=== PATIENT | male | born 1925 | race Caucasian/White ===

== ENCOUNTER 2016-09-19 12:07 | Outpatient (CLI) | payer MEDICARE ==
--- NOTE | 2016-09-19 22:21 | RAD ---
LUMBAR SPINE THREE VIEWS 09/19/16 Slight scoliosis convexed right is present but might even be positional. The SI joints are symmetric al. The lateral view shows a mild anterior compression of T12 and to a lesser extent L1. A degenerat ed disc is seen at L2-L3. Osteophytes are seen elsewhere in the lumbar spine. 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 Ar terial calcifications are present in the aorta. IMPRESSION: 1. Degenerative disc disease at L2-L3. 2. Mild anterior compressions of T12 and to a lesser extent L1. 3. Grade I spondylolisthesis of L5 on S1, probably due to intense facet arthritis at this level . POS: HOME
== END 2016-09-19 12:08 | disposition home or self-care (01) ==
LOC: BURRAD 12:07
PROVIDERS: ATTEND Family Medicine
DX: M54.5 Low back pain (principal); M51.36 Other intervertebral disc degeneration, lumbar region; M43.17 Spondylolisthesis, lumbosacral region
CPT/HCPCS: 72100

== ENCOUNTER 2017-01-10 09:33 | Outpatient (CLI) | payer MEDICARE ==
[2017-01-10 16:10] LABS: ALT (SGPT) 10 U/L (8-55); AST (SGOT) 11 U/L (5-34); Alkaline Phosphatase 75 U/L (40-150); Anion Gap 13 mmol/L (10-20); BUN (Urea Nitrogen) 26 mg/dL (8.4-25.7); Bilirubin, Total 0.6 mg/dL (0.2-1.2); Calc. Creatinine Clearance 0 mL/min (70-130); Carbon Dioxide 32 mmol/L (23-31); Cardiac Risk 2.3 (Less than 4.5); Chloride 106 mmol/L (98-107); Cholesterol 184 mg/dl (< 200 Desired); Estimated GFR-MDRD 54; Globulin 2.9 g/dL (2.4-3.5); Glucose 99 mg/dL (83-110); HDL Cholesterol 80 mg/dL (>60 Neg Risk); LDL Cholesterol, Calculated 92 mg/dL; Potassium 4.2 mmol/L (3.5-5.1); Protein, Total 6.9 g/dL (5.8-8.1); Sodium 147 mmol/L (136-145); Triglycerides 61 mg/dL (Less than 150)
[2017-01-10 16:19] LABS: #Basophils 0.1 thou/uL (0.0-0.2); #Lymphocytes 1.5 thou/uL (1.20-3.40); #Monocytes 0.3 thou/uL (0.11-0.59); #Neutrophils 10.5 thou/uL (1.40-6.50); %Basophils 0.5 % (0.0-1.0); %Eosinophils 0.2 % (0.0-10.0); %Lymphocytes 11.8 % (21.0-51.0); %Monocytes 2.6 % (0.0-10.0); Hemoglobin 11.6 g/dL (14.0-18.0); Mean Corpuscular Hemoglobin 26.2 pg (27.0-31.0); Mean Corpuscular Volume 87.3 fl (80.0-94.0); Mean Platelet Volume 6.3 fL (7.4-10.4); Platelet Count 251 thou/uL (130-400); RBC Distribution Width 22.1 % (11.5-14.5); Red Blood Cell (RBC) Count 4.42 mill/uL (4.70-6.10); White Blood Cell (WBC) Count 12.4 thou/uL (4.8-10.8)
[2017-01-10 16:20] LABS: Acanthocytes SLIGHT = 1-5 cells (100X) (None Seen); Elliptocytes SLIGHT = 2-5 cells (100X) (0-1/hpf); MDiff Complete? YES; Macrocytosis SLIGHT = 6-15 cells (100X) (0-5/hpf); Microcytosis SLIGHT = 6-15 cells (100X) (0-5/hpf); Polychromasia SLIGHT = 2-3 cells (100X) (0-2/hpf)
[2017-01-10 16:27] LABS: Thyroid Stimulating Hormone 1.8348 uIU/mL (0.35-4.94)
[2017-01-10 18:23] LABS: Iron 107 ug/dL (65-175); Iron Binding Capacity, Total 380 mcg/dL (261-462)
[2017-01-10 18:41] LABS: Ferritin 32.78 ng/mL (22-322)
== END 2017-01-10 09:34 | disposition home or self-care (01) ==
LOC: LABLEX 09:33
PROVIDERS: ATTEND Family Medicine
DX: I50.30 Unspecified diastolic (congestive) heart failure (principal); R60.9 Edema, unspecified; D64.9 Anemia, unspecified
CPT/HCPCS: 80053; 80061; 82728; 83540; 83550; 83880; 84443; 85025